=== PATIENT | female | born 1950 | race Caucasian/White ===

== ENCOUNTER → 2022-03-20 | Outpatient (CLI) | payer MEDICARE, OTHER ==
--- NOTE | 2022-03-20 10:12 | RAD ---
PA and lateral chest. HISTORY: Cough PA and lateral views were taken of the chest. There is no pneumothorax or pleural effusion. There is a hiatus hernia behind the heart. Heart is within normal limits in size. There are changes from surge ry at the left axilla. IMPRESSION: 1. Hiatus hernia. 2. No acute infiltrates. Electronically signed by: Serafin Ortiz MD (03/20/2022 10:10 AM) [id number]
== END ==
LOC: RAD 09:38
PROVIDERS: ATTEND Nurse Practitioner Family
DX: K44.9 Diaphragmatic hernia without obstruction or gangrene (principal); R05.8 Other specified cough; Z98.890 Other specified postprocedural states
CPT/HCPCS: 71046